=== PATIENT | female | born 1980 | race Caucasian/White ===

== ENCOUNTER → 2024-03-29 12:52 | Outpatient (REF) | payer BC, SELFPAY | LOC: HWWDC 12:52 | PROVIDERS: ATTENDING PHYSICIAN Physician Assistant | DX: Z12.31 Encounter for screening mammogram for malignant neoplasm of breast (principal) | CPT/HCPCS: 77063; 77067 ==

== ENCOUNTER → 2024-04-08 09:02 | Outpatient (REF) | payer BC, SELFPAY | LOC: WDC 09:02 | PROVIDERS: ATTENDING PHYSICIAN Physician Assistant | DX: R92.8 Other abnormal and inconclusive findings on diagnostic imaging of breast (principal) | CPT/HCPCS: 76642 ==

== ENCOUNTER → 2024-06-12 09:16 | Outpatient (REF) | payer BC, SELFPAY | LOC: HWRAD 09:16 | PROVIDERS: ATTENDING PHYSICIAN Physician Assistant | DX: E04.1 Nontoxic single thyroid nodule (principal) | CPT/HCPCS: 76536 ==

== ENCOUNTER 2024-07-15 06:26 | Day surgery (SDC) | payer BC, SELFPAY | END 2024-07-15 15:25 | LOC: GI 06:26 | PROVIDERS: ATTENDING PHYSICIAN Internal Medicine | DX: Z12.11 Encounter for screening for malignant neoplasm of colon (principal); K64.8 Other hemorrhoids | CPT/HCPCS: G0121 ==

== ENCOUNTER → 2024-12-09 07:31 | Outpatient (REF) | payer BC, SELFPAY | LOC: HWRAD 07:31 | PROVIDERS: ATTENDING PHYSICIAN Psychiatry & Neurology Neurology; FAMILY PHYSICIAN Physician Assistant | DX: I82.409 Acute embolism and thrombosis of unspecified deep veins of unspecified lower extremity (principal) | CPT/HCPCS: 93971 ==

== ENCOUNTER 2025-04-12 22:34 | Inpatient (IN) | payer BC, SELFPAY ==
[2025-04-12] VITALS (8 sets, daily range): BP systolic 82–112; BP diastolic 54–93; BMI 37.1
[2025-04-12 19:22] LABS: Urine Character Clear (Clear)
[2025-04-12 19:29] LABS: Urine Squamous Cell 0-2 /LPF (Few)
[2025-04-12 19:31] LABS: Urine Red Blood Cell 0-2 /HPF (0-2); Urine White Cell 26-30 /HPF (0-5)
--- NOTE | 2025-04-12 19:32 | ED.GENMED ---
History of Present Illness
General
Chief Complaint: Change in Mental Status
Time Seen by Provider: 04/12/25 19:18
Nursing documentation reviewed up to this point in time: agreed with
History of Present Illness
History of Present Illness:
44-year-old female with prior history of stroke and aphasia who is the primary caregiver for her parents with dementia brought to the ER by EMS for altered mental status. She apparently had called EMS earlier today for abdominal pain with vomiting.
She had declined transport at that time but then called back again around 6:00 tonight due to feeling weak while in the bathroom. Patient became unresponsive and route to the ER. She is unable to answer any questions for me. Majority of history
gleaned from her aunt who is listed as power of litigation attorney associate.
Review of Systems
Review of Systems
Allergies reviewed?: Yes
Phy Exam
Physical Exam
Physical Exam:
Patient is resting comfortably in no acute distress, wearing glasses, head is normocephalic atraumatic, pupils are 2 mm, nonreactive, not following commands or tracking visual movements, mucous membranes moist, heart regular rate and rhythm without
murmurs or ectopy, lungs are clear to auscultation without wheezes rales or rhonchi, abdomen is soft and nontender on palpation, right hand held loosely in a fist with atrophy, right lower extremity also with some atrophy and visual inspection
comparison to left lower extremity, positive Babinski
NIH Stroke Score
Level of Consciousness: 2 - Obtunded
LOC questions: 2-Neither correct
LOC Commands: 2-Performs neither correctly
Best Gaze: 0-Normal
Visual Hicks: 0=Normal, no visual loss
Facial palsy: 0=Normal, symmetrical
Motor - Right Arm: 4=No movement
Motor - Left Arm: 1=Drift < 10 seconds
Motor - Right Le-No movement
Motor - Left Le-No movement
Limb Ataxia: 0-Absent
Sensation: 0-Normal
Best Language: 3-Mute/global aphasia
Dysarthria: 0-Normal
Extinction and Inattention: 0-No abnormality
Total Score:: 22
Course
Orders/Labs/Results
Orders:
Orders
04/12/25 19:04
Fentanyl, Urine Urgent
Urine Drug Abuse Screen Urgent
Date Specimen was Collected: 04/12/25
Time Specimen was Collected: 19:24
04/12/25 19:09
Complete Blood Count/With Diff Urgent
Urinalysis Reflex To Culture Urgent
Date Specimen was Collected: 04/12/25
Time Specimen was Collected: 19:09
Urine Microscopic Reflex Cult Urgent
Urine Culture Urgent
ALLAN Source: U
Specimen Description:
Date Specimen was Collected: 04/12/25
Time Specimen was Collected: 19:09
Test Result ONCE
04/12/25 19:24
CT Head W/o Iv Contrast Urgent
Comment:
Reason For Exam: altered mental status
CR Chest Portable - 1 View Urgent
Comment:
Reason For Exam: cva
Reason Study Needs to be Portable: Unable to Transport
04/12/25 19:25
Straight cath- Treatment ONCE
04/12/25 19:33
Acetaminophen Urgent
Alcohol Urgent
Comprehensive Metabolic Panel Urgent
HCG, Serum Qualitative Screen Urgent
Lactic Acid Urgent
Lipase Urgent
Comment: ADD ON
Salicylate Urgent
Blood Culture Q30M
ALLAN Source: Blood/Venous
Specimen Description:
Blood Culture Q30M
ALLAN Source: Blood/Venous
Specimen Description:
04/12/25 19:45
Add On- LAB Urgent
Comments:: add on
Tests Added?: urine drug screen abuse
04/12/25 20:56
0.9% Sodium Chloride 1000 ml [Nss] 1,000 ml IV BOLUS
CefTRIAXone [Rocephin] 1,000 mg IV NOW STA
04/12/25 21:53
CT Abd/Pel (IV only)-DH only Urgent
Comment:
Reason For Exam: Abd pain, N/V
04/12/25 21:55
HYDROmorphone [Dilaudid] 0.5 mg IV NOW STA
04/12/25 22:08
Admit/Transfer Patient As Directed
Co-Sign Provider:
Level of Care: Inpatient admission
Assign to:: ICU
Physician / Group: [facility]
Diagnosis: Altered Mental Status, UTI, Chronic Pain
Reason for Hospitalization: Altered Mental Status, UTI, Chronic Pain
Expected length of stay greater than two midnights?: Yes
ELOS- Estimated Length of Stay in days: 4
I certify the patient meets the requirements for IP care: Yes
04/12/25 22:09
PRN Pain Medication Management As Directed
May give lesser potent ordered pain med per pt: Yes
preference::
Protocol:: Medication orders for pain may be administered in a
manner that supports deferring to patient preference
when the pt is:
- Requesting an ordered lesser potent pain medication.
Least to most potent pain medications are defined
as: acetaminophen < NSAID < tramadol < opioids
(morphine, oxycodone, hydromorphone).
- Requesting a lesser dose of the same medication IF
ORDERED.
- Requesting a less intrusive route of administration
if both routes are prescribed by the provider (PO <
IV).
04/12/25 22:11
Code Status As Directed
Resuscitation Status: Full Code
04/12/25 22:22
PRN Pain Medication Management As Directed
May give lesser potent ordered pain med per pt: Yes
preference::
Protocol:: Medication orders for pain may be administered in a
manner that supports deferring to patient preference
when the pt is:
- Requesting an ordered lesser potent pain medication.
Least to most potent pain medications are defined
as: acetaminophen < NSAID < tramadol < opioids
(morphine, oxycodone, hydromorphone).
- Requesting a lesser dose of the same medication IF
ORDERED.
- Requesting a less intrusive route of administration
if both routes are prescribed by the provider (PO <
IV).
Abnormal Lab Results
04/12/25 04/12/25 04/12/25
19:04 19:09 19:33
Lymphocytes % 20.0 L %
(20.5-51.1)
Glucose 134 H mg/dl
(70-99)
Calcium 10.4 H mg/dl
(8.4-10.2)
Total Protein 9.0 H g/dl
(6.3-8.2)
Albumin 5.3 H g/dl
(3.5-5.0)
Urine Ketones 3+ A
(Negative)
Leukocyte Esterase Rfl 2+ A
(Negative)
Urine WBC (Reflex) 26-30 A /HPF
(0-5)
Urine Bacteria (Reflex) Moderate A
(Negative)
Urine Albumin (Reflex) 2+ A
(Neg - Trace)
Salicylates < 1.0 L mg/dl
(2.0-20.0)
Urine Opiates Screen Positive H
(Negative)
Acetaminophen < 10 L ug/ml
(10-30)
Ur Tricyclics Screen Positive H
(Negative)
04/12/25 19:09
04/12/25 19:33
Urinalysis positive for ketones, WBCs and bacteria. Urine drug screen positive for opiates and tricyclics. Kidney function preserved. With blood count normal.
Vital Signs
Initial and Last Documented VS:
Initial Vital Signs
Pulse Resp BP
97 16 110/93
04/12/25 18:50 04/12/25 18:50 04/12/25 18:50
Last Documented Vital Signs
Temp Pulse Resp BP Pulse Ox
97.4 F 79 9 104/72 99
04/12/25 18:54 04/12/25 22:00 04/12/25 22:00 04/12/25 22:00 04/12/25 20:15
MDM/Problems Addressed
Differential Diagnosis Includes:
Differential diagnosis considered but not limited to acute intracranial hemorrhage, stroke, delirium, adverse medication reaction, occult infection along with other etiologies considered
Chronic conditions affecting care:
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
*Radiology
Radiology exam reviewed: radiology read reviewed (CT: IMPRESSION: Prior left frontotemporoparietal craniotomy with large area of ENCEPHALOMALACIA in the left frontotemporal region as well as the left insular cortex and basal ganglia regions. No
acute intracranial infarction or acute intracranial hemorrhage.)
*Pulse Oximetry
SaO2: 96
Oxygen Mode of Delivery: Room air
Patient hypoxic: no
*Salt Miner Interpretation
Rate: normal (I independently viewed and interpreted rhythm strip showing normal sinus rhythm, no ectopy)
*Critical Care Note
Total Time (30-74mins, 75-104mins- exclusive of procedures): See critical care note
Data Reviewed
Review of Other/Old Records Reveals: Records (I reviewed H&P from 07/15/2024 to review physical exam, medication list, prior medical history-this was an H&P in preparation for colon cancer screening colonoscopy by Dr. Green)
Update Note
Update Note:
Patient was deeply comatose on my initial assessment. Patient went to CT but while in the radiology department became more alert, repeatedly stating her name out loud. On reexamination, patient is now trying to answer questions and seems very
frustrated due to her aphasia. Unfortunately we tried to utilize writing and she was still not procedurally able to communicate with us as well. Moving Left arm and leg without difficulty, has significant right-sided hemiplegia, speech is clear
when she is stating her name. Urine appears concerning for infection. IV antibiotics ordered. I reviewed full patient presentation with the hospitalist to accept patient for admission for further evaluation of acute change in mental status. I
was able to speak with her power of litigation attorney associate, her aunt, who relates to me that she is her primary caregiver for her parents with dementia. She agrees with plan for admission.
Critical care statement: A total of 45 minutes of critical care time was provided for this patient. This includes management of unstable vital signs, evaluation of the patient at bedside, reviewing the patient's pertinent medical records, discussion
with consultants, review of old EKGs and review of pertinent medical records. This time with separate from time utilized to perform the aforementioned documented procedures
ED Attending Note
-
Portions of this chart may have been created with voice recognition software.� Occasional wrong word or��sound alike� substitutions may have occurred due to the inherent limitations of voice recognition software.
Discharge Plan
Departure
Patient Disposition: Admit
Date of Disposition: 04/12/25
Time of Disposition: 21:35
Presentation/result/management discussed w/ accepting MD/DO: Hospitalist
Discharge Problem:
Acute alteration in mental status, Urinary tract infection
Interventions
Interventions:
*Risk Screen - Suicide Last Done: 04/12/25 18:54
*General Assessment Last Done: 04/12/25 18:54
*Neglect/Abuse Screening Last Done: 04/12/25 18:54
*ED- Fall Risk Assessment Last Done: 04/12/25 18:54
*ED COVID-19 Vaccine History Last Done: 04/12/25 18:54
ED- Neurological Assessment Last Done: 04/12/25 18:54
ED- Cardiac Assessment Last Done: 04/12/25 18:54
ED Swallowing Screen Last Done: 04/12/25 19:34
[2025-04-12 19:52] LABS: Hematocrit 41.8 % (37.0-47.0); Hemoglobin 14.0 g/dL (12.0-16.0); Mean Corp Hgb Conc. 33.5 g/dL (33.0-37.0); Mean Corpuscular Volume 88.0 fL (81.0-99.0); Nucleated Red Blood Cells % 0 %; Red Cell Dist. Width 12.9 % (11.5-14.5)
[2025-04-12 20:05] LABS: HCG, Serum Qualitative Screen Negative
[2025-04-12 20:10] LABS: ALT (SGPT) 18 U/L (0-35); AST (SGOT) 25 U/L (14-36); Acetaminophen < 10 ug/ml (10-30); Albumin 5.3 g/dl (3.5-5.0); Alkaline Phosphatase 89 U/L (38-126); Blood Urea Nitrogen 14 mg/dl (7-17); Calcium 10.4 mg/dl (8.4-10.2); Carbon Dioxide 22 mmol/L (22-30); Chloride 107 mmol/L (98-107); Glucose 134 mg/dl (70-99); Potassium 4.1 mmol/L (3.5-5.1); Salicylate < 1.0 mg/dl (2.0-20.0); Sodium 143 mmol/L (135-145); Total Protein 9.0 g/dl (6.3-8.2); eGFR > 60.00
[2025-04-12] MEDS: ROCEPHIN 1000 MG IV (21:12)
[2025-04-12] MEDS: NSS 1000 IV (21:12)
--- NOTE | 2025-04-12 22:17 | HPS.HSE ---
Family Physician
-
Family Physician: Samira Claudio
Chief Complaint
-
Altered Mental Status
History of Present Illness
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 History obtained from family via phone, ED staff and patient to
an extent. Patient was in her usual state of health yesterday when she spoke with her aunt via phone. She has R hemiparesis at baseline. She has significant expressive aphasia - but is generally able to answer Y/N questions appropriately and is
cognitively intact.
Earlier today, patient began to complain of abdominal pain with several episodes of N/V at home. EMS was called however patient reportedly decline transport to the ED at that time.
Later in the evening EMS was called again with complaints of extreme weakness and patient was brought to the ED for further evaluation.
Upon arrival to the ED, patient was reportedly unresponsive. She gradually became more responsive - initially just repeating her name [id number].
At the time of my examination, patient appears alert. She is speaking with her aunt via phone. She is expressing that she is in the ED. She complains of pain. She is requesting her aunt come to the hospital (she is unfortunately out of the
state).
Medical History
Past Medical History
Past Medical History: Reports Other
Additional Past Medical History:
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
Complex Regional Pain Syndrome
Cervical DDD / HNP with Cord Compression
Past Surgical History: Reports Other
Additional Past Surgical History:
Craniotomy / Decompression / Aneurysm Clipping (10/2014)
Cranioplasty (01/2015)
Cervical Discectomy / Fusion
Intrathecal Pain Pump Placement
Social History
Tobacco: Non-smoker
Alcohol: None
Drug: None
Living: With Family
Family History
Family History: Not pertinent
Allergies / Home Medications
Allergies reflects when Allergies were last updated in [employer].
Home Medications with original date entered in [employer]
Allergy/Medication List:
Allergies
Allergy/AdvReac Type Severity Reaction Status Date / Time
No Known Allergies Allergy Verified 05/31/23 06:36
Home Medications
amitriptyline 50 mg tablet 50 mg PO HS 05/11/23
gabapentin 600 mg tablet 600 mg PO BID 05/11/23
gabapentin 600 mg tablet 900 mg PO HS 05/11/23
baclofen 20 mg tablet 20 mg PO BID 04/12/25
hydromorphone 4 mg tablet 4 mg PO DAILYPRN PRN Pain 04/12/25
Patient also takes ketamine powder - but dose / frequency not available.
Above meds confirmed on admission - other meds listed on outpatient data, but not confirmed (Ozempic, Keppra, etc)
Review of Systems
-
History Source: Patient and Family
A 12 point ROS was completed and negative except as noted: Yes
Constitutional: Reports Fatigue; Denies Fever
Respiratory: Denies Trouble Breathing
Cardiac: Denies Chest Pain
Abdomen/GI: Reports Abdominal Pain, Nausea and Vomiting; Denies Diarrhea or Bloody Stools
Neurological: Reports Headache
Physical Exam
Vital Signs
Vital Signs
Temp Pulse Resp BP Pulse Ox
97.4 F 106 47 106/83 99
04/12/25 18:54 04/12/25 21:15 04/12/25 21:15 04/12/25 21:09 04/12/25 20:15
Physical Exam
General: Other (Tearful 44y F in moderate distress due to pain / anxiety.)
HEENT: Moist mucous membranes, PERRLA and Other (Post surgical / craniotomy changes. No evident nuchal rigidity.)
Respiratory: Other (Decreased at bases - otherwise clear.)
Cardiac: S1/S2 and Tachycardia; No Murmur
GI: Soft, Non Distended, Normal Bowel Sounds and Other (No evident guarding / rebound. Patient indicates tenderness diffusely.)
Musculoskeletal: No Clubbing and No Cyanosis
Neuro: Awake, Alert and Other (Chronic R hemiparesis with atrophy / mild contracture. Expressive aphasia - increased from baseline.)
Laboratory Results
-
04/12/25 19:09
04/12/25:33
Laboratory Results
Lactic Acid 1.1 mmol/L (0.7-2.0) 04/12/25 19:33
Total Bilirubin 1.1 mg/dl (0.2-1.3) 04/12/25:33
AST 25 U/L (14-36) 04/12/25:
ALT 18 U/L (0-35) 04/12/25:33
Alkaline Phosphatase 89 U/L (38-126) 04/12/25:33
Impression/Plan
-
A/P: Patient is a 44y F with PMH significant for cerebral aneurysm rupture with resultant R hemiparesis and expressive aphasia who presents to ED for evaluation of mental status change, abd pain and N/V.
Acute Change in Mental Status
- Admit for further evaluation and treatment.
- Broad differential for mental status change.
- Patient initially presented unresponsive and has gradually become more responsive / close to usual baseline - though she continues to have confusion / difficulty communicating.
- ? secondary to acute infectious process - gastroenteritis, UTI, etc.
- ? seizure with post-ictal period given prior [employer]OR [employer] injury / event and initial unresponsive episode.
- ? med effect with chronic pain regimen / multiple sedating medications / etc.
- Address individual issues as noted below.
- Follow for continued improvement in mental status.
Abdominal Pain, N/V
- Symptoms seem c/w gastroenteritis.
- Patient also on Ozempic according to outpatient records - though this could not be confirmed.
- No significant lab abnormalities appreciated. Afebrile.
- Check abdominal imaging for further evaluation. Add lipase.
- IVFs, antiemetics, supportive care.
- Follow for recurrent emesis, diarrhea or other symptoms.
UTI
- UA is consistent with possible infection.
- Difficult to determine presence / absence of symptoms given aphasia / current confusion.
- Continue ceftriaxone for now pending culture data.
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
Seizure Disorder
- Previously maintained on Keppra following [employer] insult / aneurysm / hemorrhagic CVA.
- Not clear if any actual prior seizure activity.
- Could not confirm Keppra (not among Rx bottles brought with patient).
- Would continue / resume for now in any event.
- Ceribell monitoring to rule out seizure activity.
- Neurology evaluation for additional recommendations.
- CT done in the ED today shows significant chronic changes - but no acute abnormalities.
Complex Regional Pain Syndrome
Chronic Opioid Dependence
- Patient denies taking any extra medications - though not clear how reliable her Y/N answers are at present - they seem to change at times.
- Appears in distress at present.
- Continue usual pain medications as able.
- IV Dilaudid for now for breakthrough pain.
- Hold ketamine for now.
- Pain pump in place.
- Patient is followed by Dr. Rodriguez as an outpatient.
DVT Prophylaxis: Subcut heparin
Code Status: Full
[2025-04-12] MEDS: DILAUDID 0.5 MG IV (22:32)
[2025-04-12 23:07] LABS: Lipase 184 U/L (23-300)
--- NOTE | 2025-04-12 23:38 | W.PN.SEPSIS ---
Sepsis
Vital Signs
Temp Pulse Resp BP Pulse Ox
97.4 F 78 6 100/72 98
04/12/25 18:54 04/12/25 23:15 04/12/25 23:15 04/12/25 23:10 04/12/25 23:15
Physical Exam
Physical Exam:
A focused exam was performed after fluid resuscitation.
Capillary Refill
Bilateral Upper Extremity:
Vandana Time: Less than 3 sec
Bilateral Lower Extremity:
Vandana Time: Less than 3 sec
Pulse Evaluation
Bilateral Radial:
Pulse Evaluation: Present
Bilateral Dorsalis Pedis:
Pulse Evaluation: Present
[2025-04-12] MEDS: LR 1000 IV (23:48)
[2025-04-12 23:51] LABS: Glucose - Point of Care 72 mg/dl (70-99)
[2025-04-12] MEDS: KEPPRA 500 MG IV (23:53)
[2025-04-13] VITALS (14 sets, daily range): BP systolic 88–139; BP diastolic 53–93; PULSE 87–96; O2SAT 96–97; BMI 37.1
--- NOTE | 2025-04-13 01:07 | PTCARENOTE ---
Received patient in room 3370 with her eyes shut. Opens eyes to verbal commands. Pupils are +3 and reactive. Pt's tracking. symmetrical smile with tongue midline. Pt's able to move her left upper and left lower extremities. Slight movement with her
right lower extremity. Ceribell placed with initial seizure burden of 0%. Pt has difficulty communicating due to expressive aphasia. Repeats 'yes, no,' but not quite answering questions being asked. Applied SCDs and the patient began asking and
screaming 'you want my head up or down' while pointing to her legs. Asked the patient if her head was causing her pain and she said no 'you want my head up or down?' Patient continued screaming and became tachycardic with HR of 124 on the monitor,
and RR 40. Asked the patient if the SCDs were causing her pain and she screamed 'yes.' SCDs removed and patient signed with relief and HR HR and RR were back to normal of 80s and RR 10-12 . Trace edema to bilateral lower extremities. Breath sounds
are cta. SpO2 at 97% on RA. +BS. Patient cleansed and purewick placed. Limbs elevated on pillows. LR at 125 via left AC #18g. Lt forearm IV is intact and patent. Pt's not able to assist much with admission questions she continues answering yes and
no to all questions. Flowsheet for full assessment.
[2025-04-13] MEDS: VALIUM INJECTION 5 MG IV ×2 (03:17→04:54)
--- NOTE | 2025-04-13 03:20 | PTCARENOTE ---
Pt's asleep with seizure activity. Seizure burden of 43%. [employer]S SALES ADVISOR made aware. Temp 98.1, BP 104/63, with HR 96. Patient aroused to verbal command. Seizure broke with burden of 0%. Postictal, pt yelling for her mother. Valium 5 mg IV administered. PARTS SALES ADVISOR at
the bedside.
--- NOTE | 2025-04-13 03:26 | W.PN.UPDATE ---
Update Note
Progress Note Update
0310- RN alerted that Rapid EEG (Ceribell) showed 40-50% seizure burden activity. Patient had no abnormal shaking, abnormal movements, or other visual cues of seizure activity. Valium 5mg IV ordered and given. Seizure activity decreased just as
Valium was being given. Patient woke up screaming, yelling for 'mom', attempted re-direction and reassurance, but was unsuccessful as she continued to scream loudly, confused and agitated. Neurologist Dr. Moy consulted and discussed cased,
advised no antiepileptic medications at this time (will place current keppra order on hold for now), PRN benzodiazepines at this time. Likely lowered seizure threshold in the setting of UTI, acute infection.
[2025-04-13 03:58] LABS: Hematocrit 37.4 % (37.0-47.0); Hemoglobin 12.8 g/dL (12.0-16.0); Mean Corp Hgb Conc. 34.2 g/dL (33.0-37.0); Mean Corpuscular Volume 89.3 fL (81.0-99.0); Platelet Count 265 10^3/uL (130-400); Red Cell Dist. Width 13.0 % (11.5-14.5)
[2025-04-13 04:16] LABS: ALT (SGPT) 14 U/L (0-35); AST (SGOT) 19 U/L (14-36); Albumin 3.7 g/dl (3.5-5.0); Alkaline Phosphatase 56 U/L (38-126); Blood Urea Nitrogen 13 mg/dl (7-17); Calcium 9.6 mg/dl (8.4-10.2); Carbon Dioxide 24 mmol/L (22-30); Chloride 112 mmol/L (98-107); Estimated Creatinine Clearance > 125 ml/min; Glucose 92 mg/dl (70-99); Magnesium 2.0 mg/dl (1.6-2.3); Potassium 4.2 mmol/L (3.5-5.1); Sodium 141 mmol/L (135-145); Total Protein 6.5 g/dl (6.3-8.2); eGFR > 60.00
--- NOTE | 2025-04-13 04:22 | PTCARENOTE ---
Patient reassessed. Seizure burden of zero percent. Sinus rhythm on the monitor. Pt's more alert and asking to watch television. PAtient shifts her weight in bed. All needs are met at this time.
--- NOTE | 2025-04-13 07:15 | CON.INTV ---
Addendum entered and electronically signed by Lonnie Garnica MD 04/13/25 09:17:
Patient transferring out of ICU to telemetry floor
Veterinary Receptionist service will sign off, please call as needed
Original Note:
Consultation
Consultation Request
Date/Time Consultation Requested: 04/13/2025
Date/Time Consultation Performed: 04/13/2025
Medical History
-
History of Present Illness:
Patient is a 44-year-old female with prior history of intracranial hemorrhage, cerebral aneurysm rupture, residual right hemiparesis and expressive aphasia who presented to the emergency room with mental status changes. Patient unable to provide
any significant history hence information is more recently obtained from medical records and discussion with other healthcare providers. At baseline patient reportedly has right hemiparesis and is conversant with simple answers of yes and no and is
cognitively intact. Patient reportedly complained of abdominal pain with several episodes of nausea and vomiting at home. EMS was called twice and in the setting of extreme weakness patient was brought to the emergency room for further evaluation.
Initially patient was minimally responsive but gradually improved. Workup in the emergency room was suggestive of pyuria concerning for UTI.
Past Medical History
Past Medical History: Reports Other
Additional Past Medical History:
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
Complex Regional Pain Syndrome
Cervical DDD / HNP with Cord Compression
Past Surgical History: Reports Other
Additional Past Surgical History:
Craniotomy / Decompression / Aneurysm Clipping (10/2014)
Cranioplasty (01/2015)
Cervical Discectomy / Fusion
Intrathecal Pain Pump Placement
Social History
Tobacco: Non-smoker
Alcohol: None
Drug: None
Living: With Family
Family History
Family History: Not pertinent
Allergies / Home Medications
Allergies
Allergy/AdvReac Type Severity Reaction Status Date / Time
No Known Allergies Allergy Verified 05/31/23 06:36
Home Medications
�Medication �Instructions �Recorded �Confirmed �Last Taken �Type
amitriptyline 50 mg tablet 50 mg PO HS 05/11/23 04/12/25 05/30/23 22:00 History
gabapentin 600 mg tablet 600 mg PO BID 05/11/23 04/12/25 05/30/23 12:00 History
gabapentin 600 mg tablet 900 mg PO HS 05/11/23 04/12/25 05/30/23 22:00 History
baclofen 20 mg tablet 20 mg PO BID 04/12/25 04/12/25 Unknown History
hydromorphone 4 mg tablet 4 mg PO DAILYPRN PRN Pain 04/12/25 04/12/25 Unknown History
Review of Systems
-
Hematologic/Lymphatic: Other (All 14 systems reviewed and negative except as stated above in the history of present illness.)
Vitals / Labs / Diagnostic Testing
Vital Signs
Temp Pulse Resp BP Pulse Ox
97.6 F 90 10 120/80 100
04/13/25 03:38 04/13/25 07:00 04/13/25 07:00 04/13/25 07:00 04/13/25 06:45
Lab Data
04/13/25 03:48
04/13/25 03:37
Laboratory Results
04/13/25
03:48
PT Cancelled
INR Cancelled
APTT Cancelled
Diagnostic Testing:
Physical Exam
-
HEENT: Normocephalic
Cardiovascular: S1/S2
Respiratory: Clear
GI: Soft and Non Distended
Neurology: Awake and Alert
Skin: Warm
General: Comfortable
Assessment
-
#1. Acute encephalopathy
- Appears to be related to breakthrough seizure and postictal state
- Clinically quite improved, now awake alert and conversant
- Neurology service on case. Cerebella in place, no seizure activity noted during my evaluation.
#2. UTI vs pyuria
- Blood cultures, urine cultures pending. WBC count normal. Lactate 1.1.
- Rocephin pending cultures
#3. Seizure disorder with concern for break through seizures
- Has been on Keppra in the past, await further neurology recommendations
#4. Chronic regional pain syndrome, chronic opioid use
- Pain pump in place, currently awake alert and does not seem to be overmedicated
- Encephalopathy more likely from postictal state
DVT prophylaxis. Subcu heparin
Critical Care time 62 mins -- The patient is admitted for acute critical illness for the treatment of vital organ failure and/or prevention of further life-threatening conditions. Total care includes time spent in review of history, physical exam,
medications, hemodynamic/ventilator parameters, laboratory data, imaging and discussion with house staff, pharmacy, respiratory therapy, drag sawyer, and nursing.
Data:
CXR 03/2025: Extremely low lung volumes. No acute pulmonary process.
CT Head 03/2025: Prior left frontotemporoparietal craniotomy with large area of ENCEPHALOMALACIA in the left frontotemporal region as well as the left insular cortex and basal ganglia regions.
No acute intracranial infarction or acute intracranial hemorrhage.
--- NOTE | 2025-04-13 07:26 | CON.NEURO ---
Consultation
Order
Date of Consultation: 04/13/25
Requesting Provider: Arpan Maloney DO
Reason for Consult: Encephalopathy
Neurology Consultation Note.
HPI: This is a 44-year-old RH woman who presented to [facility] on 04/12/2025 with abdominal pain. Neurology consultation was requested for evaluation and management of transient unresponsiveness
Upon arrival to the ED, patient was reportedly unresponsive. According to EMR 'she gradually became more responsive - initially just repeating her name [id number] '.
Ms. Cornell has a history of L MCA aneurysm that she underwent clipping in 2014. She has a residual expressive aphasia and right arm spastic plegia
ER VS: 110/95, 97, afebrile
EKG: NSR, QTcB Int : 456 ms
MAR: Diazepam 5 mg given on 04/13/2025 at 3:17 AM and 4:54 AM.
PDMP: Ketamine Hcl Powder 4.14 filled in on 04/03/2025, Hydromorphone 4 Mg�30 tabs filled in on 03/31/2025, 02/21/2025
Labs: Normal glucose, sodium, calcium, magnesium, EtOH�negative, urine tox�positive for opioids, tricyclic's
CT head wo contrast-Prior left frontotemporoparietal craniotomy with large area of ENCEPHALOMALACIA in the left frontotemporal region as well as the left insular cortex and basal ganglia regions. No acute intracranial infarction or acute
intracranial hemorrhage.
Ceribell-frequent left frontotemporal sharps, excessive beta activity and continuous left hemispheric slowing.
PMH: h/o C6/C7 cervical stenosis, L MCA aneurysm (s/p clipping), chronic pain syndrome, BMI 37
PSH: C6-C7 ACDF, left frontotemporoparietal craniotomy(10/2014), Cranioplasty (01/2015), Excision of cyst, lower lip; intrathecal pump implantation
SH: Lives with parents, uses no assistive device, Previously worked in [employer]; completed college. Non-smoker, no history excessive alcohol
FH: Mother�dementia
All:NKDA
ROS: Negative for change in vision, headache, new motor or sensory deficits.
General: Well developed. In no acute distress.
Cardio: Regular rate and rhythm without murmur. Extremities are without cyanosis or edema.
Neuro:
Mental Status: Alert, oriented to name, person, location. Intermittent severe expressive aphasia. Comprehension is intact. Follows complex requests consistently.
Cranial Nerves: Pupils are equally round and reactive to light. EOMs full. Blinks to threat bilaterally. No nystagmus. Face symmetric. Normal hearing AU. The palate elevated well. SCMs and traps 5/5. Tongue midline. No dysarthria.
Motor: Spastic right arm plegia, no left or bilateral leg drift.
Reflexes: Limited exam due to body habitus
Sensory: Preserved vibration bilaterally
Coordination: No tremors myoclonic movement
Gait: deferred
Assessment and Plan:
I. Symptomatic focal epilepsy
II. L MCA aneurysm (s/p clipping) with residual dysphasia and right hemiparesis
III. h/o C6/C7 cervical stenosis, status post remote C3 6 C7 ACDF
IV. Chronic pain syndrome
- Fall and seizure precautions
-Start Keppra 1 g followed by 500 mg twice daily
-No driving for 6 months
-Outpatient driving safety evaluation
-Please check TFTs
-Avoid medications known to lower seizure threshold
-Outpatient neurology follow-up.
I personally reviewed all radiology and labs along with past medical records pertinent to current medical problems. Total time spent in patient care is 60 minutes.
Thank you for allowing us to participate in the care of this patient. We will continue to follow. Please do not hesitate to contact us with any questions or concerns.
Subjective/Objective
Subjective Data
Date of Service: April 13, 2025
Objective Data
Vital Signs
Temp Pulse Resp BP Pulse Ox
36.4 C 90 10 120/80 100
04/13/25 03:38 04/13/25 07:00 04/13/25 07:00 04/13/25 07:00 04/13/25 06:45
Lab Results
04/13/25 03:48
04/13/25 03:37
PT Cancelled 04/13/25 03:48
INR Cancelled 04/13/25 03:48
APTT Cancelled 04/13/25 03:48
Sodium 141 mmol/L (135-145) 04/13/25 03:37
Potassium 4.2 mmol/L (3.5-5.1) 04/13/25 03:37
BUN 13 mg/dl (7-17) 04/13/25 03:37
Glucose 92 mg/dl (70-99) 04/13/25 03:37
Calcium 9.6 mg/dl (8.4-10.2) 04/13/25 03:37
Phosphorus 3.3 mg/dl (2.5-4.5) 04/13/25 03:37
Ur Buprenorphine Cancelled 04/12/25 19:35
Patient Allergies
No Known Allergies Allergy (Verified 05/31/23 06:36)
Medications
-
Active Medications
Generic Name Dose Route Start Last Admin
Trade Name Freq PRN Reason Stop Dose Admin
Acetaminophen 650 mg 04/12/25 23:38
Acetaminophen 325 Mg Tablet PO 05/10/25 23:37
Q4HPRN PRN
Mild Pain / Temp > 101
Amitriptyline HCl 50 mg 04/13/25 22:00
Amitriptyline 50 Mg Tablet PO 05/11/25 21:59
HS MAGALY
Baclofen 20 mg 04/13/25 08:00
Baclofen 20 Mg Tablet PO 05/11/25 07:59
BID MAGALY
Ceftriaxone Sodium 1,000 mg 04/13/25 22:00
Ceftriaxone 1000 Mg / 10 Ml Vial IV
Q24H MAGALY
Diazepam 5 mg 04/13/25 04:44
Diazepam 10 Mg/2 Ml Inj IV 05/11/25 04:43
Q6HPRN PRN
seizure
Gabapentin 600 mg 04/13/25 08:00
Gabapentin 300 Mg Capsule PO 05/11/25 07:59
BID AT 0800,1700 MAGALY
Gabapentin 900 mg 04/13/25 22:00
Gabapentin 300 Mg Capsule PO 05/11/25 21:59
HS MAGALY
Heparin Sodium 5,000 units 04/13/25 08:00
Heparin 5,000 Units/Ml 1 Ml Vial SC 05/11/25 07:59
Q12 MAGALY
Hydromorphone HCl 1 mg 04/12/25 23:38
Hydromorphone 1 Mg/Ml Carpuject IV 04/26/25 23:37
Q4HPRN PRN
Severe Pain
Lactated Ringer's 1,000 mls @ 125 mls/hr 04/12/25 23:38 04/12/25 23:48
Lr IV 1,000 mls
.Q8H MAGALY Administration
Levetiracetam 500 mg 04/12/25 23:38 04/12/25 23:53
Levetiracetam (100 Mg/Ml) 500 Mg/5 Ml Vial IV 05/10/25 23:37 500 mg
On Hold: 04/13/25 03:37 Q12 MAGALY Administration
Prochlorperazine Edisylate 5 mg 04/12/25 23:38
Prochlorperazine 10 Mg/2 Ml Vial IV 05/10/25 23:37
Q6HPRN PRN
Nausea
Sodium Chloride 0 flush 04/12/25 23:00
Sodium Chloride 0.9% (Flush) Syringe IV 05/10/25 22:59
PER PROTOCOL MAGALY
Sterile Water 10 ml 04/13/25 22:00
Sterile Water For Injection 10 Ml Vial IV 05/11/25 21:59
Q24H MAGALY
Home Medications
�Medication �Instructions �Recorded
amitriptyline 50 mg tablet 50 mg PO HS 05/11/23
gabapentin 600 mg tablet 600 mg PO BID 05/11/23
gabapentin 600 mg tablet 900 mg PO HS 05/11/23
baclofen 20 mg tablet 20 mg PO BID 04/12/25
hydromorphone 4 mg tablet 4 mg PO DAILYPRN PRN Pain 04/12/25
Vital Signs and Labs
-
Vital Signs and Labs:
Vital Signs
Temp Pulse Resp BP Pulse Ox
36.4 C 90 10 120/80 100
04/13/25 03:38 04/13/25 07:00 04/13/25 07:00 04/13/25 07:00 04/13/25 06:45
Lab Results
04/13/25 03:48
04/13/25 03:37
PT Cancelled 04/13/25 03:48
INR Cancelled 04/13/25 03:48
APTT Cancelled 04/13/25 03:48
Sodium 141 mmol/L (135-145) 04/13/25 03:37
Potassium 4.2 mmol/L (3.5-5.1) 04/13/25 03:37
BUN 13 mg/dl (7-17) 04/13/25 03:37
Glucose 92 mg/dl (70-99) 04/13/25 03:37
Calcium 9.6 mg/dl (8.4-10.2) 04/13/25 03:37
Phosphorus 3.3 mg/dl (2.5-4.5) 04/13/25 03:37
Ur Buprenorphine Cancelled 04/12/25 19:35
Medications
-
Medications:
Generic Name Dose Route Start Last Admin
Trade Name Freq PRN Reason Stop Dose Admin
Acetaminophen 650 mg 04/12/25 23:38
Acetaminophen 325 Mg Tablet PO 05/10/25 23:37
Q4HPRN PRN
Mild Pain / Temp > 101
Amitriptyline HCl 50 mg 04/13/25 22:00
Amitriptyline 50 Mg Tablet PO 05/11/25 21:59
HS MAGALY
Baclofen 20 mg 04/13/25 08:00
Baclofen 20 Mg Tablet PO 05/11/25 07:59
BID MAGALY
Ceftriaxone Sodium 1,000 mg 04/13/25 22:00
Ceftriaxone 1000 Mg / 10 Ml Vial IV
Q24H MAGALY
Diazepam 5 mg 04/13/25 04:44
Diazepam 10 Mg/2 Ml Inj IV 05/11/25 04:43
Q6HPRN PRN
seizure
Gabapentin 600 mg 04/13/25 08:00
Gabapentin 300 Mg Capsule PO 05/11/25 07:59
BID AT 0800,1700 MAGALY
Gabapentin 900 mg 04/13/25 22:00
Gabapentin 300 Mg Capsule PO 05/11/25 21:59
HS MAGALY
Heparin Sodium 5,000 units 04/13/25 08:00
Heparin 5,000 Units/Ml 1 Ml Vial SC 05/11/25 07:59
Q12 MAGALY
Hydromorphone HCl 1 mg 04/12/25 23:38
Hydromorphone 1 Mg/Ml Carpuject IV 04/26/25 23:37
Q4HPRN PRN
Severe Pain
Lactated Ringer's 1,000 mls @ 125 mls/hr 04/12/25 23:38 04/12/25 23:48
Lr IV 1,000 mls
.Q8H MAGALY Administration
Levetiracetam 500 mg 04/12/25 23:38 04/12/25 23:53
Levetiracetam (100 Mg/Ml) 500 Mg/5 Ml Vial IV 05/10/25 23:37 500 mg
On Hold: 04/13/25 03:37 Q12 MAGALY Administration
Prochlorperazine Edisylate 5 mg 04/12/25 23:38
Prochlorperazine 10 Mg/2 Ml Vial IV 05/10/25 23:37
Q6HPRN PRN
Nausea
Sodium Chloride 0 flush 04/12/25 23:00
Sodium Chloride 0.9% (Flush) Syringe IV 05/10/25 22:59
PER PROTOCOL MAGALY
Sterile Water 10 ml 04/13/25 22:00
Sterile Water For Injection 10 Ml Vial IV 05/11/25 21:59
Q24H MAGALY
Home Medications
-
Home Medications
amitriptyline 50 mg tablet 50 mg PO HS 05/11/23
gabapentin 600 mg tablet 600 mg PO BID 05/11/23
gabapentin 600 mg tablet 900 mg PO HS 05/11/23
baclofen 20 mg tablet 20 mg PO BID 04/12/25
hydromorphone 4 mg tablet 4 mg PO DAILYPRN PRN Pain 04/12/25
[2025-04-13] MEDS: HEPARIN 5000 UNITS SC ×2 (07:53→19:31)
[2025-04-13] MEDS: NEURONTIN 600 MG PO (07:54)
[2025-04-13] MEDS: LIORESAL 20 MG PO ×2 (07:54→19:31)
[2025-04-13] MEDS: LR 1000 IV (08:04)
--- NOTE | 2025-04-13 08:35 | W.PN.HOSP.TC ---
Today's Communication/Plan
-
Start on regular diet
Empirical ceftriaxone until culture data is back
Continue with her home medication
Antiepileptics per neurology
Transferred to telemetry
PT OT eval
Assessment / Plan
Assessment / Plan
A/P: Patient is a 44y F with PMH significant for cerebral aneurysm rupture with resultant R hemiparesis and expressive aphasia who presents to ED for evaluation of mental status change, abd pain and N/V.
Acute Change in Mental Status
- Admit for further evaluation and treatment.
- Broad differential for mental status change.
- Patient initially presented unresponsive and has gradually become more responsive / close to usual baseline - though she continues to have confusion / difficulty communicating.
- ? secondary to acute infectious process - gastroenteritis, UTI, etc.
- ? seizure with post-ictal period given prior [employer] injury / event and initial unresponsive episode.
- ? med effect with chronic pain regimen / multiple sedating medications / etc.
- Address individual issues as noted below.
- Follow for continued improvement in mental status.
Abdominal Pain, N/V
- Unclear if it was gastroenteritis. Currently none.
- No significant lab abnormalities appreciated. Afebrile.
- CT abdomen pelvis without oral and IV contrast shows no acute pathology.
- Abdomen is benign. Tolerating clear liquids.
- Start on solid diet and follow-up
Possible UTI
- UA is consistent with possible infection.
- With the expressive aphasia history is difficult but she is denying any urinary symptoms of discomfort or frequency.
- Continue ceftriaxone for now pending culture data.
Change in mental status
Unclear if this was neurological. Hard to exclude seizures. She is at risk for that. She had a transient disorientation and confusion. She currently has expressive aphasia which makes it difficult to assess her cognitive status but she is alert
and oriented x 3 and follows commands appropriately. She is at a chronic right upper extremity spastic paresis from prior brain surgery.
Ceribell at bedside at 1 point showed seizure burden activity of 40 to 50% and was given Valium yesterday. Went down to 3%. Currently showing a 3%.
Discussed with ICU-she cannot exclude seizures. Treat as possible seizures precipitated by UTI. Starting on Keppra. Advises no driving.
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
Seizure Disorder
- Previously maintained on Keppra following [employer] insult / aneurysm / hemorrhagic CVA.
- Patient denies having seizures and not on Keppra
- CT done in the ED today shows significant chronic changes - but no acute abnormalities.
Complex Regional Pain Syndrome
Chronic Opioid Dependence
- Patient denies taking any extra medications - though not clear how reliable her Y/N answers are at present - they seem to change at times.
- Continue usual pain medications as able.
- Hold ketamine for now.
- Pain pump in place.
- Patient is followed by Dr. Rodriguez as an outpatient.
DVT Prophylaxis: Subcut heparin
Code Status: Full
Discussed with CINDER BLOCK MASON
Discussed with neurology.
Discussed with aunt on the phone.
Total time spent on today's encounter was 52 minutes which included time spent in counseling the patient/family regarding diagnosis and treatment plan as listed above, goals of care, and symptom management. Case was discussed with nursing staff,
specialists, and care coordinators/case management. All labs and imaging personally reviewed by me. Remainder the time spent in detailed review of previous records, lab data, imaging, and other medical provider documentation.
Portions of this chart may have been created with voice recognition software. Occasional wrong word or 'sound alike' substitutions may have occurred due to the inherent limitations of voice recognition software.
Anticipated Discharge: 24 - 48 hours
Subjective/Interval History
-
Date of Service: April 13, 2025
Patient this morning is alert oriented to place.' I am in [facility]'. It is monday ,'
Patient has got expressive aphasia so history is difficult.
She tells her parents got concerned so called ambulance. She cannot tell what the concerns would have been. She is not sure what happened yesterday.
I mentioned about the story of nausea vomiting abdominal pain and change in mental status, she says she did not remember having the symptoms.
She lives with parents and mother is demented and father is hard of hearing and also has his own medical issues and not a great help according to aunt with whom i had a chat this morning. She is not POA.
Hx from aunt is -patient apparently was having abdominal pain and started feeling nauseous and threw up. She apparently had loose stools 2. And then she started to yell now to every question and not coherent on the phone for her. She normally is
able to FaceTime with the patient but yesterday she could not due to patient's condition.
She is not aware about any history of seizures although the patient says she has seizures.
2 or 3 times in the recent past she was labeled as having seizures but neurosurgery apparently told no seizures so she is still driving apparently.
The patient UA was concerning for UTI-patient could not tell if she has dysuria or frequency. Denies any fever or chills.
Objective Data
-
Labs:
Laboratory Results
04/13/25 04/13/25 04/13/25
03:37 03:48 04:28
WBC 5.6
Hgb 12.8
Hct 37.4
Plt Count 265
PT Cancelled Pending
INR Cancelled Pending
APTT Cancelled Pending
Sodium 141
Potassium 4.2
Chloride 112 H
Carbon Dioxide 24
BUN 13
Creatinine 0.6
Glucose 92
Calcium 9.6
Total Bilirubin 0.6
AST 19
ALT 14
Alkaline Phosphatase 56
Vital Signs:
Vital Signs
Temp Pulse Resp BP Pulse Ox
97.6 F 90 10 120/80 100
04/13/25 03:38 04/13/25 07:00 04/13/25 07:00 04/13/25 07:00 04/13/25 06:45
I&O
04/12/25 04/13/25 04/14/25
06:59 06:59 06:59
Intake Total 750 / 750
Balance 750 / 750
Physical Exam
-
General: Comfortable
Respiratory: Clear to Auscultation and Non Labored Respirations; Negative Accessory Resp Muscle Use
Cardiac: Regular Rhythm, S1/S2 and Tachycardic
GI: Soft, Nontender, Nondistended and Normal Bowel Sounds
Musculoskeletal: No Edema
Neuro: AO x 3; Negative No Motor Deficits (RUE with spastic paresis ; LUE 5/5 ; RLE 4+/5; LLLE 5/5) or Slurred Speech (Expressive aphasia)
Psych: Calm; Negative Confused
Data Reviewed
-
Labs: Labs Reviewed by me
[2025-04-13] MEDS: DILAUDID 1 MG IV (09:17)
--- NOTE | 2025-04-13 09:23 | PTOTSP ---
Speech-Language Evaluation
Bedside swallow assessment completed. Pt at an elevated risk of aspiration given PMH of CVA with residual hemiparesis and expressive aphasia and recent altered mental status. Pt seen with PO trials of regular solids and thins (via open cup and
straw). Oral phase WFL with adequate acceptance, functional mastication, bolus formation, ap transfer, and oral�clearance. Pharyngeal phase is characterized by no overt s/sx of aspiration, clear vocal quality, and no breath changes.�Pt denies
dysphagia at baseline.
Recommendation:
1. IDDSI 7 Regular solids, IDDSI 0 Thin liquids
2. Medication as best tolerated
3. Standard aspiration precautions
4. COURTESY DRIVER follow up x1 to ensure diet tolerance�
--- NOTE | 2025-04-13 09:30 | PTCARENOTE ---
Received pt awake and alert.+ expressive aphasia,word finding difficulty.RUE 0/5 with hand and finger contraction noted.RLE 3/5.LUE and LLE 5/5.Swallow eval completed.No swallowing difficulty noted.Assisted OOB to chair with 1 person
minimal assist.Pt initially denied pain,but has c/o severe right shoulder pain related to CRP.Requested and received Dilaudid as ordered.SR noted.IVF infusing as ordered.Lungs CTA.POX 98% on RA.Appetite excellent.No BM.Voiding in bathroom.Plan of
care discussed with pt.
--- NOTE | 2025-04-13 10:20 | CM ---
CM reviewed chart, care ongoing. Patient is a 44 year old female with PMH significant for ruptured cerebral aneurysm with resultant R hemiparesis and expressive aphasia who presents to ED for evaluation of mental status change.
Initial assessment completed with patients aunkike and Modesto GUTIERREZ. 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 Per Aunt, patient drives parents to
appointments and keeps track of their appointments. Patients home is one level with washer in basement, two steps to enter home. Patient does not use DME, has a pain pump, Pain Management Dr. Rodriguez. Aunt reports patient does have paperwork to
complete for disability but has not completed it. Aunt reports patient was recently at [facility], discharged to [facility], now is outpatient with OT and Speech at [facility]. Aunt reports patient is also followed by Dr. Quinn
Edwin. Aunt reports although she lives out of state she is very involved in patients care. Patient PCP Samira Claudio, Pharmacy [facility]. PT/OT consulted.
Please update Modesto Polo [phone] (POA) upon discharge.
Plan; likely return home with return to outpatient OT/Speech, PT/OT consulted
--- NOTE | 2025-04-13 13:06 | PTCARENOTE ---
Pt assessed.No change in assessment noted.
--- NOTE | 2025-04-13 16:00 | PTCARENOTE ---
Report given to HIDE MEASURING MACHINE OPERATOR.
[2025-04-13] MEDS: NEURONTIN 900 MG PO ×2 (16:32→18:28)
--- NOTE | 2025-04-13 20:52 | PTCARENOTE ---
Report received from previous shift RN [id number]. Pt in chair, AAO3. Pt has expressive aphasia, RUE paralysis, RLE weakness at baseline. Pt's R hand/wrist/fingers are contracted and she has R foot drop. Pt denies pain. Lung sounds are clear throughout,
denies SOB/cough, ,pt is on room air. Telemetry rhythm reveals SR-ST, HR 80-100's, trace lower extr edema noted, palpable peripheral pulses present. Order obtained for knee high SCDs. +BS, abdomen soft obese nontender. Pt tolerating regular diet,
denies nausea. Assisted pt from chair into bathroom, pt voided large amt yellow urine. Pt requested to have Purewick device placed for HS d/t occasional nocturnal incontinence. Skin intact. L AC int flushed and patent, capped. L FA int leaking when
flushed, will be D/C'd. Safe environment maintained, call camacho within reach. Will monitor closely.
[2025-04-13] MEDS: ROCEPHIN 1000 MG IV (22:28)
[2025-04-13] MEDS: STERILE WATER FOR INJECTION 10 ML IV (22:28)
[2025-04-14] VITALS (9 sets, daily range): BP systolic 106–136; BP diastolic 55–91; PULSE 90; O2SAT 100; BMI 38.3
[2025-04-14 04:31] LABS: Hematocrit 34.7 % (37.0-47.0); Hemoglobin 11.7 g/dL (12.0-16.0); Mean Corp Hgb Conc. 33.7 g/dL (33.0-37.0); Mean Corpuscular Volume 87.8 fL (81.0-99.0); Platelet Count 256 10^3/uL (130-400); Red Cell Dist. Width 12.9 % (11.5-14.5)
[2025-04-14 04:50] LABS: Blood Urea Nitrogen 11 mg/dl (7-17); Calcium 9.5 mg/dl (8.4-10.2); Carbon Dioxide 24 mmol/L (22-30); Chloride 110 mmol/L (98-107); Estimated Creatinine Clearance 124 ml/min; Glucose 103 mg/dl (70-99); Magnesium 1.8 mg/dl (1.6-2.3); Potassium 4.0 mmol/L (3.5-5.1); Sodium 140 mmol/L (135-145); eGFR > 60.00
--- NOTE | 2025-04-14 05:01 | PTCARENOTE ---
No change in pt assessment. Pt slept when undisturbed throughout night.
Pt w telemetry transfer orders. Report called to Kathleen, receiving unit RN. All belongings packed and to be transferred to room 416-1 shortly.
--- NOTE | 2025-04-14 05:30 | PTCARENOTE ---
pt is aaox3. pt remains at baseline w/ her expressive aphasia, RUE paralysis, RLE weakness. Pt's R hand/wrist/fingers are contracted and she has R foot drop (foot brace is at home). pt has no c/o at this time. pt is oriented to room w/ call camacho in
reach.
[2025-04-14] MEDS: NEURONTIN 900 MG PO ×3 (07:28→17:34)
[2025-04-14] MEDS: LIORESAL 20 MG PO ×2 (07:28→20:21)
[2025-04-14] MEDS: HEPARIN 5000 UNITS SC ×2 (07:29→20:21)
--- NOTE | 2025-04-14 12:49 | W.PN.HOSP.TC ---
Today's Communication/Plan
-
waiting for cultures
plan would be for d/c home
Assessment / Plan
Assessment / Plan
Patient is a 44 yo female with PMH significant for cerebral aneurysm rupture with resultant R hemiparesis and expressive aphasia who presents to ED for evaluation of mental status change, abd pain and N/V.
Acute Change in Mental Status--Patient initially presented unresponsive and has gradually become more responsive/close to usual baseline --looking for infection--urine culture not back--blood cultures negative--seizures possible, apprec
neuro--Ceribell at bedside at 1 point showed seizure burden activity of 40 to 50% and was given Valium--cont Keppra
Abdominal Pain, N/V--resolved- CT abdomen pelvis without oral and IV contrast shows no acute pathology.
Possible UTI-- UA is consistent with possible infection--await cultures - Continue ceftriaxone for now pending culture data.
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
Complex Regional Pain Syndrome/Chronic Opioid Dependence - Patient denies taking any extra medications - though not clear how reliable her Y/N answers are at present - they seem to change at times - Continue usual pain medications as able- Pain
pump in place- Patient is followed by Dr. Rodriguez as an outpatient.
DVT Prophylaxis: Subcut heparin
Code Status: Full
Anticipated Discharge: Within 24 hours
Subjective/Interval History
-
Date of Service: April 14, 2025
pt feels better
Objective Data
-
Labs:
Laboratory Results
04/14/25
04:15
WBC 5.2
Hgb 11.7 L
Hct 34.7 L
Plt Count 256
Sodium 140
Potassium 4.0
Chloride 110 H
Carbon Dioxide 24
BUN 11
Creatinine 0.7
Glucose 103 H
Calcium 9.5
Vital Signs:
max temp for 24 hours
04/14/25
03:19
Temp 98.3 F
Vital Signs
Temp Pulse Resp BP Pulse Ox
98.7 F 90 16 124/86 100
04/14/25 11:00 04/14/25 11:00 04/14/25 11:00 04/14/25 11:00 04/14/25 11:00
I&O
04/13/25 04/14/25 04/15/25
06:59 06:59 06:59
Intake Total 750 / 875 1825 / 1825
Output Total 350 / 350
Balance 750 / 875 1475 / 1475
Review of Systems
-
All other systems: Reviewed and negative
Physical Exam
-
General: Well Developed, Well Nourished and No Apparent Distress
HEENT: Normocephalic and Atraumatic
Respiratory: Clear to Auscultation; Negative Wheezes or Rhonchi
Cardiac: Regular Rhythm and S1/S2; Negative Murmur
GI: Soft, Nontender, Nondistended and Normal Bowel Sounds
Musculoskeletal: No Clubbing, No Cyanosis and No Edema
Neuro: Negative Nonfocal/Grossly Intact (right sided hemiplegia)
Psych: Calm
--- NOTE | 2025-04-14 13:03 | CM ---
CM reviewed chart, patient seen in chair.
CM discussed therapy recommendations of home health- patient is current with outpatient therapy at [place], would like to continue outpatient therapy. Patient does drive and is not home bound.
Likely d/c tomorrow, patient will not have transportation home- elderly parents at home, no other local family.
CM will continue to follow for all discharge planning needs.
Plan; home with continuance of outpatient therapy at [place]
[2025-04-14 20:51] LABS: Glucose - Point of Care 89 mg/dl (70-99)
[2025-04-14] MEDS: MELATONIN 3 MG PO (22:39)
[2025-04-14] MEDS: ROCEPHIN 1000 MG IV (22:39)
[2025-04-14] MEDS: STERILE WATER FOR INJECTION 10 ML IV (22:39)
[2025-04-15] VITALS (7 sets, daily range): BP systolic 103–136; BP diastolic 67–86; PULSE 91; O2SAT 97; BMI 38.2
[2025-04-15] MEDS: HEPARIN 5000 UNITS SC ×2 (08:11→20:11)
[2025-04-15] MEDS: NEURONTIN 900 MG PO ×3 (08:18→17:42)
[2025-04-15] MEDS: LIORESAL 20 MG PO ×2 (08:18→20:12)
[2025-04-15 09:29] LABS: Hematocrit 41.6 % (37.0-47.0); Hemoglobin 13.8 g/dL (12.0-16.0); Mean Corp Hgb Conc. 33.2 g/dL (33.0-37.0); Mean Corpuscular Volume 88.1 fL (81.0-99.0); Platelet Count 272 10^3/uL (130-400); Red Cell Dist. Width 12.9 % (11.5-14.5)
[2025-04-15 10:00] LABS: Blood Urea Nitrogen 13 mg/dl (7-17); Calcium 9.4 mg/dl (8.4-10.2); Carbon Dioxide 24 mmol/L (22-30); Chloride 107 mmol/L (98-107); Estimated Creatinine Clearance 110 ml/min; Glucose 93 mg/dl (70-99); Magnesium 2.0 mg/dl (1.6-2.3); Potassium 4.5 mmol/L (3.5-5.1); Sodium 139 mmol/L (135-145); eGFR > 60.00
--- NOTE | 2025-04-15 14:21 | CM ---
Patient seen at bedside with physician in [facility]. Patient states that she wants to go home but physician reviewed concerns and plan is for possible discharge home tomorrow with follow up at [place] outpatient clinic. Patient will need updated script
from physician. Patient plan is for an uber home when medically appropriate. CM will continue to follow for discharge planning needs.
Plan; home with outpatient therapy at [place].
--- NOTE | 2025-04-15 14:32 | W.PN.HOSP.TC ---
Today's Communication/Plan
-
waiting for final urine culture results
Assessment / Plan
Assessment / Plan
Patient is a 44 yo female with PMH significant for cerebral aneurysm rupture with resultant R hemiparesis and expressive aphasia who presents to ED for evaluation of mental status change, abd pain and N/V.
Acute Change in Mental Status--Patient initially presented unresponsive and has gradually become more responsive and is now at baseline --looking for infection--urine culture with gm neg bacilli but ID and sensi's not back--blood cultures
negative--seizures possible, apprec neuro--Ceribell at bedside at 1 point showed seizure burden activity of 40 to 50% and was given Valium--cont Keppra--no driving x 6 months
Abdominal Pain, N/V--resolved- CT abdomen pelvis without oral and IV contrast shows no acute pathology.
Possible UTI-- UA is consistent with possible infection--await cultures - Continue ceftriaxone for now pending culture data.
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
Complex Regional Pain Syndrome/Chronic Opioid Dependence - Patient denies taking any extra medications - though not clear how reliable her Y/N answers are at present - they seem to change at times - Continue usual pain medications as able- Pain
pump in place- Patient is followed by Dr. Rodriguez as an outpatient.
DVT Prophylaxis: Subcut heparin
Code Status: Full
Anticipated Discharge: Within 24 hours
Subjective/Interval History
-
Date of Service: April 15, 2025
pt doing OK--waiting to go home
Objective Data
-
Labs:
Laboratory Results
04/15/25
08:39
WBC 5.3
Hgb 13.8
Hct 41.6
Plt Count 272
Sodium 139
Potassium 4.5
Chloride 107
Carbon Dioxide 24
BUN 13
Creatinine 0.8
Glucose 93
Calcium 9.4
Vital Signs:
max temp for 24 hours
04/14/25
23:17
Temp 98.9 F
Vital Signs
Temp Pulse Resp BP Pulse Ox
97.6 F 100 18 112/67 97
04/15/25 07:15 04/15/25 07:15 04/15/25 07:15 04/15/25 07:15 04/15/25 10:28
I&O
04/14/25 04/15/25 04/16/25
06:59 06:59 06:59
Intake Total 1825 / 1825 1000 / 1000 1080 / 1080
Output Total 350 / 350
Balance 1475 / 1475 1000 / 1000 1080 / 1080
Review of Systems
-
All other systems: Reviewed and negative
Physical Exam
-
General: Well Developed, Well Nourished and No Apparent Distress
HEENT: Normocephalic and Atraumatic; Negative Oxygen
Respiratory: Clear to Auscultation; Negative Wheezes or Rhonchi
Cardiac: Regular Rhythm and S1/S2; Negative Murmur
GI: Soft, Nontender, Nondistended and Normal Bowel Sounds
Musculoskeletal: No Clubbing, No Cyanosis and No Edema
Neuro: Negative Nonfocal/Grossly Intact (right hemiplegia)
Psych: Calm
[2025-04-15] MEDS: ROCEPHIN 1000 MG IV (23:35)
[2025-04-15] MEDS: STERILE WATER FOR INJECTION 10 ML IV (23:36)
[2025-04-15] MEDS: MELATONIN 3 MG PO (23:38)
[2025-04-16 06:00] VITALS: BMI 37.7
[2025-04-16 07:15] VITALS: BP 127/75
[2025-04-16 09:00] LABS: Hematocrit 41.9 % (37.0-47.0); Hemoglobin 14.0 g/dL (12.0-16.0); Mean Corp Hgb Conc. 33.4 g/dL (33.0-37.0); Mean Corpuscular Volume 90.1 fL (81.0-99.0); Platelet Count 283 10^3/uL (130-400); Red Cell Dist. Width 12.9 % (11.5-14.5)
[2025-04-16] MEDS: HEPARIN 5000 UNITS SC (09:32)
[2025-04-16] MEDS: LIORESAL 20 MG PO (09:32)
[2025-04-16] MEDS: NEURONTIN 900 MG PO ×2 (09:32→13:03)
[2025-04-16 10:08] LABS: Blood Urea Nitrogen 13 mg/dl (7-17); Calcium 9.8 mg/dl (8.4-10.2); Carbon Dioxide 25 mmol/L (22-30); Chloride 105 mmol/L (98-107); Estimated Creatinine Clearance 108 ml/min; Glucose 86 mg/dl (70-99); Magnesium 2.0 mg/dl (1.6-2.3); Potassium 4.6 mmol/L (3.5-5.1); Sodium 138 mmol/L (135-145); eGFR > 60.00
[2025-04-16] MEDS: LAMICTAL 25 MG PO (13:49)
--- NOTE | 2025-04-16 14:18 | CM ---
Addendum entered by Mouna Allan 04/16/25 14:40:
Patient states she does not have her cell phone and has no other way to get home. When patient discharge order is in CM will call for Lyft.
Original Note:
Patient seen at bedside with physician on . Patient is for discharge home with outpatient [facility] follow up/therapy. Patient is now asking for Lyft ride to home. CM will continue to follow for discharge planning needs.
Plan; home with [facility] outpatient follow up/clinic
--- NOTE | 2025-04-16 14:56 | W.PN.HOSP.TC ---
Today's Communication/Plan
-
d/c
Assessment / Plan
Assessment / Plan
Patient is a 44 yo female with PMH significant for cerebral aneurysm rupture with resultant R hemiparesis and expressive aphasia who presents to ED for evaluation of mental status change, abd pain and N/V.
Acute Change in Mental Status--Patient initially presented unresponsive and has gradually become more responsive and is now at baseline --looking for infection--urine culture with 2 E. coli bacteria--both sensitive to tetracycline--will give doxy at
d/c--blood cultures negative--seizures possible, apprec neuro--Ceribell at bedside at 1 point showed seizure burden activity of 40 to 50% and was given Valium--cont Keppra, pt not taking--neuro to change to lamictal--no driving x 6 months
Abdominal Pain, N/V--resolved- CT abdomen pelvis without oral and IV contrast shows no acute pathology.
Possible UTI-- UA is consistent with possible infection--await cultures - Continue ceftriaxone for now pending culture data.
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
Complex Regional Pain Syndrome/Chronic Opioid Dependence - Patient denies taking any extra medications - though not clear how reliable her Y/N answers are at present - they seem to change at times - Continue usual pain medications as able- Pain
pump in place- Patient is followed by Dr. Rodriguez as an outpatient.
DVT Prophylaxis: Subcut heparin
Code Status: Full
Anticipated Discharge: Today
Subjective/Interval History
-
Date of Service: April 16, 2025
pt ready for d/c
Objective Data
-
Labs:
Laboratory Results
04/16/25
07:12
WBC 7.5
Hgb 14.0
Hct 41.9
Plt Count 283
Sodium 138
Potassium 4.6
Chloride 105
Carbon Dioxide 25
BUN 13
Creatinine 0.8
Glucose 86
Calcium 9.8
Vital Signs:
max temp for 24 hours
04/15/25
23:40
Temp 98.4 F
Vital Signs
Temp Pulse Resp BP Pulse Ox
98.4 F 97 18 127/75 96
04/16/25 07:15 04/16/25 07:15 04/16/25 07:15 04/16/25 07:15 04/16/25 07:15
I&O
04/15/25 04/16/25 04/17/25
06:59 06:59 06:59
Intake Total 1000 / 1000 2460 / 2460
Balance 1000 / 1000 2460 / 2460
Review of Systems
-
All other systems: Reviewed and negative
Physical Exam
-
General: Well Developed, Well Nourished and No Apparent Distress
HEENT: Normocephalic and Atraumatic
Respiratory: Clear to Auscultation; Negative Wheezes or Rhonchi
Cardiac: Regular Rhythm and S1/S2; Negative Murmur
GI: Soft, Nontender, Nondistended and Normal Bowel Sounds
Musculoskeletal: No Clubbing, No Cyanosis and No Edema
Neuro: Negative Nonfocal/Grossly Intact (right sided hemiparesis)
Psych: Calm
[2025-04-16 15:27] VITALS: BP 126/87
--- NOTE | 2025-04-16 16:18 | W.DCSUMMARY ---
Discharge Summary
Discharge Data
Date of Admission: 04/12/25
Date of Discharge: 04/16/25
-
Pending Results: No
Hospital Course
Primary care physician : Samira Claudio
Principal Discharge diagnosis : Acute change in mental status
Chronic Discharge diagnosis : cerebral aneurysm with hemorrhagic CVA and right hemiparesis with expressive aphasia and past, complex regional pain syndrome with chronic opioid dependence
Hospital Course : Patient was a 44-year-old female with a history of ruptured cerebral aneurysm with resultant right hemiparesis and expressive aphasia who presented for a change in mental status. Patient was in her usual state of health and she
spoke to her aunt via phone. Patient began complaining of abdominal pain with several episodes of nausea and vomiting. Patient had extreme weakness and reportedly was unresponsive. She gradually became more responsive in the emergency department.
Patient was admitted.
Problem #1: Acute change in mental status. Patient was admitted and was unresponsive and gradually became more responsive. Neurology was consulted and there was a concern for seizures. Ceribell was placed at the bedside and showed seizure burden
of 40 to 50%. Keppra was started but the patient is not taking and refusing. Neurology has changed to Lamictal. She has been instructed that she is not to drive until she is seizure-free for 6 months. Patient does not believe that she had
seizures. I did have neurology come back and reexplained the situation to her. In addition, she infection was looked for and urine culture was positive with 2 different Escherichia coli strands. Both were sensitive to tetracycline and so she was
transitioned to doxycycline at discharge.
Problem #2: All other medical issues. These include cerebral aneurysm with hemorrhagic CVA and right hemiparesis with expressive aphasia and past, complex regional pain syndrome with chronic opioid dependence. These medical issues were stable
during her hospitalization. Medications were continued as able.
Patient is stable for discharge at this time. If there are any questions regarding this dictation or her hospital stay, please do not hesitate to call. Our office number is [phone].
Time for discharge 32 minutes.
Discharge Plan
-
Patient Disposition: Home (Routine Discharge)
Discharge Diagnosis/Procedures: Acute change in mental status due to urinary tract infection and seizures, cerebral aneurysm with hemorrhagic stroke and resultant right hemiparesis and expressive aphasia in the past, complex regional pain syndrome
with chronic opioid dependence
Condition: Good
Diet: As tolerated
Activity: As tolerated
Driving Restrictions: Since you are having seizures, no driving for 6 mo
Bathing Restrictions: None
Activity Restrictions/Additional Instructions:
You must be seizure-free for 6 months in order to start driving again.
You will need to follow-up with your own neurologist at your usual timeframe.
Referrals:
Samira Claudio PA-C [Family Provider, Internal Medicine] - in less than 1 week
Prescriptions:
New
lamotrigine 25 mg Tablet, Chewable Dispersible
25 mg PO DAILY Qty: 30 0RF
doxycycline hyclate 100 mg tablet
100 mg PO BID 7 Days Qty: 14 0RF
Continued
amitriptyline 50 mg Tablet
50 mg PO HS
baclofen 20 mg tablet
20 mg PO BID
hydromorphone 4 mg tablet
4 mg PO DAILYPRN PRN (Reason: Pain)
gabapentin
900 mg TID
Rx Instructions:
morning,noon,dinner
Discharge Orders:
Discharge Patient (As Directed); Ordered 04/16/25
Ordered By: Lupe Singh
Discharge Date and Time
Discharge Date/Time: 04/16/25 16:05
Print Language: BERMUDIAN
== END 2025-04-16 16:05 | disposition home or self-care (01) | DRG 101 ==
LOC: 4 WEST ACU 22:34
PROVIDERS: Nurse Practitioner Family; ADMITTING PHYSICIAN Hospitalist; ATTENDING PHYSICIAN Internal Medicine; CONSULT PHYSICIAN Internal Medicine; CONSULT PHYSICIAN Psychiatry & Neurology Neurology; EMERGENCY PHYSICIAN Emergency Medicine; FAMILY PHYSICIAN Physician Assistant
PROC: XX20X89 Monitoring of Brain Electrical Activity, Computer-aided Detection and Notification, New Technology Group 9 (ICD-10-PCS; 2025-04-13)
DX: G40.109 Localization-related (focal) (partial) symptomatic epilepsy and epileptic syndromes with simple partial seizures, not intractable, without status epilepticus (principal); N39.0 Urinary tract infection, site not specified; I69.351 Hemiplegia and hemiparesis following cerebral infarction affecting right dominant side; I69.251 Hemiplegia and hemiparesis following other nontraumatic intracranial hemorrhage affecting right dominant side; F11.20 Opioid dependence, uncomplicated; G93.40 Encephalopathy, unspecified; M50.023 Cervical disc disorder at C6-C7 level with myelopathy; K52.9 Noninfective gastroenteritis and colitis, unspecified; M48.02 Spinal stenosis, cervical region; G89.4 Chronic pain syndrome; Z63.6 Dependent relative needing care at home; I69.220 Aphasia following other nontraumatic intracranial hemorrhage; Z98.1 Arthrodesis status; Z79.899 Other long term (current) drug therapy
CPT/HCPCS: 51701; 70450; 71045; 74177; 80048; 80053; 80143; 80179; 80306; 80307; 81003; 81015; 82077; 82248; 82962; 83605; 83690; 83735; 84100; 84443; 84703; 85025; 85027; 87040; 87077; 87086; 87186; 92526; 92610; 93005; 95705; 96361; 96374; 97116; 97163; 97167; 97530; 97535; 99291; Q9967

== ENCOUNTER → 2025-05-09 07:28 | Outpatient (REF) | payer BC, SELFPAY | LOC: PAVMRI 07:28 | PROVIDERS: ATTENDING PHYSICIAN Psychiatry & Neurology Neurology; FAMILY PHYSICIAN Physician Assistant | DX: M54.12 Radiculopathy, cervical region (principal) | CPT/HCPCS: 72156; A9575 ==

== ENCOUNTER → 2025-07-21 06:51 | Outpatient (REF) | payer BC, SELFPAY | LOC: HWWDC 06:51 | PROVIDERS: ATTENDING PHYSICIAN Physician Assistant | DX: Z12.31 Encounter for screening mammogram for malignant neoplasm of breast (principal) | CPT/HCPCS: 77063; 77067 ==